=== PATIENT | male | born 1975 | race Caucasian/White ===

== ENCOUNTER 2020-08-15 17:21 | Inpatient (IN) | payer BC, OTHER ==
[~2020-08-15] VITALS: Ht 193 cm; Wt 123.4 kg
[2020-08-15 17:53] LABS: HEMOGLOBIN 14.2 gm/dl (14.0-17.5); RED BLOOD COUNT 4.71 M/UL (4.20-5.50); WHITE BLOOD COUNT 11.5 K/UL (4.5-11.0)
[2020-08-15 18:16] LABS: BUN/CREATININE RATIO 19 (0-10)
[2020-08-15] MEDS ORDERED: PRINIVIL20 MG PO (22:20)
[2020-08-15] MEDS ORDERED: LOPRESSOR 25 MG25 MG PO ×2 (22:20→23:03)
[2020-08-15] MEDS ORDERED: ONE DAILY ESSE1 EACH PO (22:21)
[2020-08-15] MEDS ORDERED: FISH OIL 1,0001 EACH PO (22:21)
[2020-08-15] MEDS ORDERED: TYLENOL EXTRA500 MG PO (22:22)
[2020-08-15] MEDS ORDERED: LISINOPRIL20 MG PO (23:01)
[2020-08-15] MEDS ORDERED: LOPRESSOR50 MG PO (23:02)
[2020-08-16] MEDS ORDERED: CELECOXIB200 MG PO (10:44)
--- NOTE | 2020-08-16 13:39 | NUR ---
DR PHOENIX NOTIFIED OF RADIOLOGY REPORT ACUTE RIGHT MCA TERRITORY CVA
[2020-08-17] MEDS ORDERED: ASPIRIN EC81 MG PO (12:24)
[2020-08-17] MEDS ORDERED: CLOPIDOGREL75 MG PO (12:24)
== END 2020-08-17 13:59 | disposition home or self-care (01) | DRG 65 ==
LOC: ER1 17:21 → M/S 20:56 → CDU 20:56 → M/S 22:00
PROVIDERS: Emergency Medicine; ADMIT Internal Medicine
PROC: B24BZZZ Ultrasonography of Heart with Aorta (ICD-10-PCS; principal; 2020-08-15)
DX: I63.511 Cerebral infarction due to unspecified occlusion or stenosis of right middle cerebral artery (principal); G45.9 Transient cerebral ischemic attack, unspecified; G81.94 Hemiplegia, unspecified affecting left nondominant side; I10 Essential (primary) hypertension; E66.9 Obesity, unspecified; R29.810 Facial weakness; E86.0 Dehydration; R29.702 NIHSS score 2; E78.00 Pure hypercholesterolemia, unspecified; Z20.822 Contact with and (suspected) exposure to COVID-19; I08.1 Rheumatic disorders of both mitral and tricuspid valves; Z83.3 Family history of diabetes mellitus; Z82.49 Family history of ischemic heart disease and other diseases of the circulatory system; Z79.02 Long term (current) use of antithrombotics/antiplatelets; Z68.30 Body mass index [BMI] 30.0-30.9, adult; Z87.891 Personal history of nicotine dependence; Z79.82 Long term (current) use of aspirin
CPT/HCPCS: ECHO; 36415; 70450; 70496; 70498; 70551; 71045; 80053; 80061; 82550; 82553; 82607; 82746; 83036; 83874; 84484; 85025; 93005; 93306; 96374; 96375; 99285; J1200; J2930; Q9967; U0002

== ENCOUNTER → 2021-09-08 | Outpatient (CLI) | payer BC ==
[~2021-09-08] MED LIST: ASPIRIN EC81 MG PO; CELECOXIB200 MG PO; CLOPIDOGREL75 MG PO; FISH OIL 1,0001 EACH PO; LISINOPRIL20 MG PO; LOPRESSOR 25 MG25 MG PO; LOPRESSOR50 MG PO; ONE DAILY ESSE1 EACH PO; PRINIVIL20 MG PO; TYLENOL EXTRA500 MG PO
== END ==
LOC: EMI 09:14
DX: R53.1 Weakness (principal); R20.0 Anesthesia of skin; M47.26 Other spondylosis with radiculopathy, lumbar region; M51.16 Intervertebral disc disorders with radiculopathy, lumbar region
CPT/HCPCS: 72148